=== PATIENT | male | born 1965 ===

== ENCOUNTER → 2016-06-22 | Day surgery (SDC) | payer OTHER ==
[~2016-06-22] VITALS: Ht 172.7 cm; Wt 99.8 kg
[~2016-06-22] MED LIST: FLUTICASONE PRO16 G1 NASAL; LISINOPRIL20 MG ORAL; LR 1000ml 1,000 ML IV SCH; LR 1000ml ONE; Lidocaine 1% MPF 10mg/ml 5ml ONE; METHOCARBAMOL750 MG ORAL; NAPROXEN500 M2 ORAL; PANTOPRAZOLE SO40 MG ORAL; Propofol 10mg/ml 20ml IV ONE; TRAZODONE HCL50 MG ORAL
--- NOTE | 2016-06-22 09:17 | Short Stay Surgery H&P ---
History of Present Illness History of Present Illness Chief Complaint Abdominal pains with GERDs and history of esophagitis. MYRANDA Castro is a 51 year old male who was admitted on for Abdominal Pain and GERDS/esophagitis. Patient History Allergies: Coded Allergies: No Known Allergies (Unverified , 06/21/16) PAST MEDICAL HISTORY: (1) Hyperlipidemia (2) Hypertension (3) Esophagitis Past Surgeries: Social History: Medication History Scheduled Fluticasone Propionate* (Fluticasone Propionate*), 1 SPRAY NASAL BEDTIME, ( Reported) Lisinopril (Lisinopril*), 20 MG ORAL DAILY, (Reported) Pantoprazole* (Pantoprazole*), 40 MG ORAL DAILY, (Reported) Miscellaneous Medications Methocarbamol* (Methocarbamol*), 750 MG ORAL, (Reported) Review of Systems Cardiovascular: Reports: no symptoms Respiratory: Reports: no symptoms Skeletal: Reports: no symptoms Gastrointestinal: Reports: gastro esophageal reflux disease Genitourinary: Reports: no symptoms Neurologic: Reports: no symptoms Endocrine: Reports: no symptoms Hematologic: Reports: no symptoms Physical Exam Vital Signs Last Vital Signs Date Time Temp Pulse Resp B/P Pulse Ox O2 Delivery O2 Flow Rate FiO2 06/22/16 08:50 97.8 73 20 98 Room Air Skin: normal HENT: normal Heart: normal Lungs: normal Abdomen: abnormal Extremities: normal Genitourinary: normal Plan Plan of Care Upper Gi endoscopy and biopsy. Preop Interventions None. Summary of Findings See the reports. Final Diagnosis: Attestation Are the patient's medical conditions optimized for surgery? Attestation Response: yes PRINCESS MERINO Jun 22, 2016 09:17
--- NOTE | 2016-06-22 09:18 | Pre-Procedure Note/Attestation ---
Pre-Procedure Note/Attestation Complete Prior to Procedure Planned Procedure: left Procedure Narrative: Upper gastrointestinal endoscopy and biopsy. Indications for Procedure Pre-Operative Diagnosis: R/O Esophagitis/Gastritis/peptic ulcer. Attestation I attest that I discussed the nature of the procedure; its benefits; risks and complications; and alternatives (and the risks and benefits of such alternatives ), prior to the procedure, with the patient (or the patient's legal order entry representative). I attest that, if there was a reasonable possibility of needing a blood transfusion, the patient (or the patient's legal order entry representative) was given the [facility] standardized written summary, pursuant to the Ricardo Mott Blood Safety Act ([place] Health and Safety Code # 1645, as amended). I attest that I re-evaluated the patient just prior to the surgery and that there has been no change in the patient's H&P, except as documented below: ANGELIQUE,SAID Jun 22, 2016 09:18
--- NOTE | 2016-06-22 09:27 | Endoscopy Procedure Note ---
Endoscopy Procedure Note Indication for Procedure: History of esophagitis and GERDs. Procedures Performed: EGD - short segment Shaver's biopsied ; otherwise normal stomach, biopsy was taken per random from gastric body. Specimen: yes Pt Tolerated Procedure Well: Yes Estimated Blood Loss: none Anesthesiologist: Dr. Gomez Anesthesia: moderate sedation Medication Given: see anesthesia record Implant(s) used?: No 50 yrs or older w/o bx or poly: Not Applicable 10yrs. F/U not recommended: Not Applicable If not recommended, why?: Med reason:<3 yrs.: System Reason:<3 yrs.: PRINCESS MERINO Jun 22, 2016 09:27
--- NOTE | 2016-06-22 09:28 | Discharge Instructions ---
Discharge Instructions Discharge Instructions Follow up with: See the docotor in office after two weeks. For Congestive Heart Failure Reminder Report to your physician any weight gain of 5 pounds or more in one week. PRINCESS MERINO Jun 22, 2016 09:28
[2016-06-22 09:34] VITALS: BP 137/91
--- NOTE | 2016-06-22 09:38 | Immediate Post-Op Evaluation ---
Immediate Post-Op Evalulation Immediate Post-Op Evalulation Procedure: EGD Date of Evaluation: Jun 22, 2016 Time of Evaluation: 09:38 IV Fluids: 300 Blood Pressure Systolic: 146 Blood Pressure Diastolic: 88 Pulse Rate: 72 Respiratory Rate: 14 O2 Sat by Pulse Oximetry: 100 Temperature (Fahrenheit): 97.8 Nausea: No Vomiting: No Complications none Patient Status: awake, reacts, patent Hydration Status: adequate Drug: none SHANI PRYOR CRNA Jun 22, 2016 09:38
[2016-06-22 09:39] VITALS: BP 142/85
--- NOTE | 2016-06-22 09:40 | Anethesia Preoperative Eval ---
Anesthesia Pre-op PMH/ROS General Date of Evaluation: Jun 22, 2016 Time of Evaluation: 09:15 Anesthesiologist: angelo ASA Score: ASA 2 Mallampati Score Class I : Soft palate, uvula, fauces, pillars visible Class II: Soft palate, uvula, fauces visible Class III: Soft palate, base of uvula visible Class IV: Only hard plate visible Mallampati Classification: Class II Surgeon: Norma Diagnosis: GERD Surgical Procedure: EGD Anesthesia History: none Family History: no anesthesia problems Allergies: Coded Allergies: No Known Allergies (Unverified , 06/21/16) Medications: see eMAR Past Medical History Cardiovascular: Denies: CAD, HTN, [place], arrhythmia, other, valve dz Pulmonary: Denies: COPD, [place], asthma, other Gastrointestinal/Genitourinary: Reports: GERD Neurologic/Psychiatric: Denies: CVA, TIA, dementia, depression/anxiety, other Endocrine: Denies: DM, hypothyroidism, other, steroids HEENT: Denies: [place] (L), [place] (R), cataract (L), cataract (R), glaucoma, other Other: obesity PSxH Narrative: knee surgery - no complication Anesthesia Pre-op Phys. Exam Physician Exam Last Vital Signs Date Time Temp Pulse Resp B/P Pulse Ox O2 Delivery O2 Flow Rate FiO2 06/22/16 08:50 97.8 73 20 98 Room Air Constitutional: NAD Neurologic: CN 2-12 intact Cardiovascular: RRR Respiratory: CTA Gastrointestinal: S/NT/ND Airway Exam Mallampati Classification 3 Mallampati Score: Class III MO: full Neck: thick ROM: full Dentures: no lower, no upper Anesthesia Pre-op A/P Studies Pre-op Studies: EKG - SR Risk Assessment & Plan Plan: mac Status Change Before Surgery: No Pre-Antibiotics Drug: none SHANI PRYOR CRNA Jun 22, 2016 09:40
[2016-06-22 09:43] VITALS: BP 132/83
[2016-06-22 09:50] VITALS: BP 136/83
--- NOTE | 2016-06-22 10:07 | 48 Hour Post Anesthesia Eval ---
Post Anesthesia Evaluation Procedure: EGD Date of Evaluation: Jun 22, 2016 Time of Evaluation: 10:06 Blood Pressure Systolic: 125 0: 60 Pulse Rate: 70 Respiratory Rate: 14 O2 Sat by Pulse Oximetry: 99 Airway: patent Nausea: No Vomiting: No Hydration Status: adequate Mental Status/LOC: patient returned to baseline Post-Anesthesia Complications: none Follow-up care needed: N/A SHANI PRYOR CRNA Jun 22, 2016 10:07
[2016-06-22 10:35] VITALS: BP 135/88
--- NOTE | 2016-06-22 18:48 | Procedure Note ---
DATE OF PROCEDURE: 06/22/2016 SURGEON: Nakul Woods M.D. REFERRING PHYSICIAN: Eyal Hilario M.D. PROCEDURE: Esophagogastroduodenoscopy with biopsy. PREOPERATIVE DIAGNOSIS: History of esophagitis and gastritis. POSTOPERATIVE DIAGNOSES: Short-segment Shaver's mucosa, biopsied. Otherwise, completely normal upper GI endoscopy. Biopsy was taken random from gastric body. MEDICATION USED: Per Dr. Martinez anesthesiologist INSTRUMENT: GIF Olympus upper GI video endoscope. DESCRIPTION OF PROCEDURE: The patient after arriving in the endoscopy unit was told about risks and benefits of the procedure, which he accepted and signed the informed consent. At this time, he was put in the left lateral decubitus position. After adequate IV sedation, the scope was gently passed through the cricopharyngeal area, was lodged into the upper esophagus, gradually advanced towards gastroesophageal junction. The entire length of the esophagus looked normal. There was no evidence of varices, inflammatory process, ulceration, stricture, etc. No evidence of esophagitis that had been examined in the past; however, there was a short-segment approximately 5 to 6 mm Shaver's mucosa in different angles from the lower esophagus. There was no ulceration, however. There was no hiatal hernia. The scope was then advanced into the stomach. Gastric cavity was distended. Gastric folds were examined from the fundus all the way to the antrum. They looked completely normal and no evidence of any abnormalities such as gastritis, ulcers, tumors, polyps were found. One random biopsy from gastric body was obtained. Subsequently, the scope was passed through the pylorus. First and second portions of duodenum were found to be completely normal. Finally, the scope was pulled out. The procedure was terminated. The patient tolerated the procedure well and left the endoscopy room in good condition. Nakul Woods M.D. DR: ELIJAH JOB#: [id number] CC:
--- NOTE | 2016-06-22 19:17 | Pre-op HX & Phy Repo 2 SIG ---
DATE OF ADMISSION: 06/22/2016 REFERRING PHYSICIAN: This patient was referred by Dr. Eyal Hilario. HISTORY OF PRESENT ILLNESS: The applicant is a 51-year-old gentleman who is being seen prior to undergoing the procedure for upper GI endoscopy for further evaluation of his GI symptoms that he has suffered in the past with a diagnosis of esophagitis. The applicant is known to me since I saw him some two years ago in 2013 and at this time, he was found to have esophagitis. Approximately, the patient did not follow or comeback to office and was seen by his primary physician Dr. Eyal Hilario, who subsequently treated him for Helicobacter pylori infection, which was positive. The applicant was found at that time to have grade 1 esophagitis enhanced with minimal crack in the lower esophagus and mild gastritis. At this point, the patient has been referred to us for further evaluation endoscopically for possible continuation of the same problem or existence of esophagitis. He still continues to complain some gastroesophageal reflux and burning sensations of the epigastric area. He reports that this pain is moderate in intensity, 6/10 being maximum. He denies difficulty swallowing however. Basically, the applicant has been experiencing these symptoms since the year 2010. 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 He also reports occasionally does have minimal rectal bleeding, which is not significant and mostly secondary to hemorrhoids. He also reports that he has been taking Pepto-Bismol. He does have history of taking nonsteroidal anti-inflammatory agents since 2009 such as ibuprofen and Motrin and as I mentioned, he had positive Helicobacter infection. PAST MEDICAL HISTORY: Hypertension and hyperlipidemia. PAST SURGICAL HISTORY: Right knee surgery in 2010. ALLERGIES: None. MEDICATIONS: Methocarbamol, fluoxetine, Protonix, lisinopril for hypertension, and he takes occasionally naproxen as well. HABITS: The applicant denies drinking alcohol or smoking cigarettes. REVIEW OF SYSTEMS: Basically, history of present illness. PHYSICAL EXAMINATION: GENERAL: The patient is an alert and well-oriented gentleman, does not seem to be in acute distress. He looks well developed and nourished. VITAL SIGNS: Stable. HEENT: Normocephalic. Pupils equal in size and reactive to light and accommodation. No jaundice. Per oral cavity, midline well hydrated. No ulcers. NECK: Supple. No JVD, thyromegaly, or adenopathy. CHEST: Clear to auscultation and percussion. No rales or rhonchi. HEART: S1 and S2 normal. Regular rhythm. No gallops or murmur. ABDOMEN: Mildly tender over the upper and lower part of the abdomen, but nonspecifically. There is no organomegaly or masses. Bowel sounds are present. No ascites. EXTREMITIES: Unremarkable. PRELIMINARY IMPRESSION: 1. Abdominal pain consistent with chronic gastroesophageal reflux disease, rule out recurrent esophagitis. 2. History of esophagitis secondary to side effects of NSAIDs. medications, rule out peptic ulcer disease, duodenal ulcer, gastric ulcer, gastritis etc. RECOMMENDATION: The applicant seems to be stable at this time to undergo the procedure for upper GI endoscopy for which, he has been scheduled. He understands the risks and benefits and signs the consent. Said Noreen Woods DR: VON JOB#: [id number] CC: RACHEL
== END | disposition home or self-care (01) ==
LOC: GAS 08:06
DX: K29.50 Unspecified chronic gastritis without bleeding (principal); K21.9 Gastro-esophageal reflux disease without esophagitis; K22.70 Barrett's esophagus without dysplasia; E78.5 Hyperlipidemia, unspecified; I10 Essential (primary) hypertension; E66.9 Obesity, unspecified
CPT/HCPCS: 43239; J2704; J7120; 94003; 94150